=== PATIENT | female | born 1970 | race Caucasian/White ===

== ENCOUNTER 2019-08-19 16:37 | Emergency (ER) | payer OTHER ==
--- NOTE | 2019-08-19 18:32 | CT ---
CT THORAX NONCONTRAST: DATE: 08/19/2019 HISTORY: 49-year-old female with fever, productive cough, and body aches. COMPARISON: none FINDINGS: In the anterior segment of the left upper lobe laterally, partially abutting the major fissure and pa rtially abutting the lateral pleural surface, there is an approximately 4 x 3.5 x 3 cm focal consolidation with air bronchogram. There is a mild halo of groundglass density around this. Although COVID-19 is a possibility, this is not the typical pattern. Typically, pulmonary lesions ini tially present with groundglass opacities, which later often progress to consolidation; but consolidation is typically not the initial appearance on CT. The current pattern is more typical of b acterial pneumonia. However, testing for COVID-19 is still recommended, given the current panoramic. In a separate location at the superior segment of the left lower lobe, there is a cluster of numerous noncalcified pulmonary nodules in a tree-in-bud pattern. The smaller nodules are on the order of 1 to 2 mm. The largest nodules are up to 8 mm. This pattern is not consistent with COVID-19, but instea d, can be seen with nontuberculous mycobacterial infections. Right lung is clear. No pleural effusion or pneumothorax. No thoracic aortic aneurysm. Trachea and ma vashti bronchi are patent and clear. No cardiomegaly or pericardial effusion. No significant mediastinal lymphadenopathy. Bilateral renal cysts are noted. IMPRESSION: 1. Focal consolidation in anterior segment of left upper lobe. See above comments. 2. Focal tree-in-bud region of pulmonary nodules in superior segment of left lower lobe. See above co mments.
[2019-08-19] MEDS ORDERED: cefTRIAXone\\ROCEPHIN 1 GM VIAL ONE (18:47)
[2019-08-19] MEDS ORDERED: Azithromycin 250 MG TAB ONE (18:47)
[2019-08-19] MEDS ORDERED: Lidocaine 1% (PF) 30 ML VIAL ONE (18:47)
== END 2019-08-19 19:30 | disposition home or self-care (01) ==
LOC: NAV ERS 16:37
DX: J18.9 Pneumonia, unspecified organism (principal); I10 Essential (primary) hypertension; J45.909 Unspecified asthma, uncomplicated; E78.00 Pure hypercholesterolemia, unspecified; F41.9 Anxiety disorder, unspecified; F32.9 Major depressive disorder, single episode, unspecified; G47.00 Insomnia, unspecified; Z79.51 Long term (current) use of inhaled steroids; Z79.52 Long term (current) use of systemic steroids; Z79.899 Other long term (current) drug therapy
CPT/HCPCS: 71250; 87081; 87430; 87804; 96372; J0696; J2001; U0001